=== PATIENT | female | born 1965 ===

== ENCOUNTER 2020-11-17 07:31 | Emergency (ER) | payer OTHER ==
[~2020-11-17] VITALS: Ht 170.2 cm; Wt 77.1 kg
[2020-11-17] MEDS ORDERED: NORVASC5 MG PO (07:39)
[2020-11-17] MEDS ORDERED: ATACAND HCT 161 EACH PO (07:40)
[2020-11-17] MEDS ORDERED: PYRIDIUM DS200 MG PO (13:34)
[2020-11-17] MEDS ORDERED: KETO10TA2 PO (13:34)
== END 2020-11-17 14:21 ==
LOC: ER 07:31
DX: R10.32 Left lower quadrant pain (principal); Z20.828 Contact with and (suspected) exposure to other viral communicable diseases

== ENCOUNTER 2022-02-23 10:03 | Outpatient (CLI) | payer OTHER ==
[~2022-02-23 10:03] MED LIST: ATACAND HCT 161 EACH PO; KETO10TA2 PO; NORVASC5 MG PO; PYRIDIUM DS200 MG PO
== END 2022-02-23 10:10 | disposition home or self-care (01) ==
LOC: LAB 10:03
DX: I10 Essential (primary) hypertension (principal); E78.01 Familial hypercholesterolemia; I49.3 Ventricular premature depolarization; E66.3 Overweight

== ENCOUNTER 2022-06-01 08:11 | Outpatient (CLI) | payer OTHER | END 2022-06-01 08:12 | disposition home or self-care (01) | LOC: LAB 08:11 | PROVIDERS: ATTEND Internal Medicine Endocrinology, Diabetes & Metabolism | DX: E11.65 Type 2 diabetes mellitus with hyperglycemia (principal); E55.9 Vitamin D deficiency, unspecified; E03.9 Hypothyroidism, unspecified; D64.9 Anemia, unspecified; N39.0 Urinary tract infection, site not specified ==